=== PATIENT | female | born 1985 | race Caucasian/White ===

== ENCOUNTER 2018-07-01 06:09 | Inpatient (IN) | payer OTHER ==
[2018-07-01 06:48] VITALS: BMI 27.4
[2018-07-01] MEDS ORDERED: Meperidine HCl/PF 25 MG/ML VIAL IM/IV PRN (08:09)
[2018-07-01] MEDS ORDERED: NS / Oxytocin 40 units/1000ml 1,000 ML IV PRN (08:09)
[2018-07-01] MEDS ORDERED: Ibuprofen 800 MG TAB PO PRN (08:09)
[2018-07-01] MEDS ORDERED: Misoprostol 200 MCG TAB PR PRN (08:09)
[2018-07-01] MEDS ORDERED: Carboprost 250 MCG/ML AMP IM PRN (08:09)
[2018-07-01] MEDS ORDERED: Ondansetron PF 4 MG/2 ML Vial IVP PRN (08:09)
[2018-07-01] MEDS ORDERED: Methylergonovine 0.2 MG/ML VIAL IM PRN (08:09)
[2018-07-01] MEDS ORDERED: HYDROcodone/Acetaminophen 5/325 mg Tablet PO PRN ×2 (08:09→20:46)
[2018-07-01] MEDS ORDERED: Butorphanol Tartrate 1 MG/ML VIAL SLOW IVP PRN (08:09)
[2018-07-01] MEDS ORDERED: Lidocaine 1% (PF) 30 ML VIAL SC PRN (08:09)
[2018-07-01] MEDS ORDERED: Acetaminophen 500 MG TAB PO PRN (08:09)
[2018-07-01] MEDS ORDERED: Promethazine HCl 25 MG/ML VIAL IM PRN (08:09)
--- NOTE | 2018-07-01 08:14 | PDOC.EVN ---
Event Note - Event Note Event Note: Came to bedside to evaluate patient. , SVE 3/-1. AROM with clear fluid performed. Vertex presentation. FHT 140. Moderate variability. Category I. Anticipate . No pitocin for now, patient would prefer to see if AROM is effective in starting labor.
[2018-07-01 09:29] LABS: Hemoglobin 11.4 g/dL (12.0-16.0); Mean Corpuscular HGB CONC 33.9 g/dL (32.0-36.0); Mean Corpuscular Hemoglobin 29.9 pg (27.0-31.0); Mean Corpuscular Volume 88.2 fL (78.0-98.0); Mean Platelet Volume 11.1 fL (7.4-10.4); Platelet Count 139 thou/uL (130-400); RBC Distribution Width 11.6 % (11.5-14.5); Red Blood Cell (RBC) Count 3.81 mill/uL (4.20-5.40); White Blood Cell (WBC) Count 8.5 thou/uL (4.8-10.8)
[2018-07-01 10:17] LABS: HBSAg Index 0.28 S/CO (0-0.99); Hep B Surf Ag Non-Reactive S/CO (NonReactive); Syphilis Antibody Nonreactive (Nonreactive); Syphilis Antibody Index 0.06 S/CO (<1.00 Non-Reactive)
[2018-07-01] MEDS ORDERED: Lidocaine 1% (PF) 30 ML VIAL ONE (16:56)
[2018-07-01] MEDS ORDERED: NS / Oxytocin 40 units/1000ml 1,000 ML ONE (16:56)
[2018-07-01] MEDS ORDERED: Benzocaine-Menthol 82.5 ML CAN TOP PRN (20:46)
[2018-07-01] MEDS ORDERED: Milk Of Magnesia 30 ML UDCUP PO PRN (20:46)
[2018-07-01] MEDS ORDERED: Lanolin Ointment 7 GM TUBE TOP PRN (20:46)
[2018-07-01] MEDS ORDERED: NS / Oxytocin 40 units/1000ml 1,000 ML IV SCH (20:46)
[2018-07-01] MEDS ORDERED: Bisacodyl 10 MG SUPP PR PRN (20:46)
[2018-07-01] MEDS: Docusate Calcium (SURFAK) 240 MG CAP PO SCH (23:18)
[2018-07-01] MEDS: Ibuprofen 800 MG TAB PO SCH (23:19)
--- NOTE | 2018-07-02 02:02 | OP ---
DATE OF PROCEDURE: 07/01/2018 PREOPERATIVE DIAGNOSIS: Term intrauterine . POSTOPERATIVE DIAGNOSIS: Term intrauterine . PROCEDURE PERFORMED: Normal spontaneous vaginal delivery. WILDLIFE ECOLOGIST: Fabian Chung MD ANESTHESIA: None. ESTIMATED BLOOD LOSS: 50 mL. BRIEF DELIVERY SUMMARY: This is a 32-year-old, G7, now P7, who presented for induction of labor. She underwent artificial rupture of membranes this morning and contractions began spontaneously after that. She progressed well to complete and pushing her progress from 8 cm to deliver was very rapid. While I was en route, the baby's head and body delivered with a nuchal cord x2. Dr. Fabian Chung was present for that delivery. I arrived approximately 30 seconds after delivery of the baby. The infant was placed on mother's chest. The umbilical cord was doubly clamped and cut, and cord blood was collected and sent for analysis. The placenta was delivered spontaneously and intact with a three-vessel umbilical cord. Uterine fundus was firm following evacuation of the placenta. There were no lacerations. Mom and baby were left with the nurse in excellent condition, attempting to breastfeed. Infant Apgars were 9 at one minute and 9 at five minutes. Job ID: [id number]
[2018-07-02] MEDS: Ibuprofen 800 MG TAB PO SCH ×2 (05:26→14:35)
[2018-07-02] MEDS: Ferrous Sulfate 325 MG TAB PO SCH ×2 (07:44→16:31)
[2018-07-02] MEDS: Docusate Calcium (SURFAK) 240 MG CAP PO SCH (09:03)
--- NOTE | 2018-07-02 12:06 | PDOC.PP ---
Post Progress Note Post Day #: 1 Subjective: Doing well, well, lochia normal PO intake tolerated: yes Flatus: yes Ambulation: yes Vital Signs (12 hours) Temp Pulse Resp BP Pulse Ox 07/02/18 08:15 97.6 F 55 L 20 110/74 99 07/02/18 03:45 98.2 F 70 18 100/56 L Weight Weight 165 lb - Physical Examination General: NAD Cardiovascular: no m/r/g, RRR Respiratory: clear to auscultation bilaterally, non-labored breathing Abdominal: + bowel sounds, lochia, no distention, appropriately TTP Result Diagrams: 07/01/18 09:20 Additional Labs: Post Labs Blood Type A NEGATIVE 07/01/18 09:20 Hep Bs Antigen Non-Reactive S/CO (NonReactive) 07/01/18 09:20 (1) Vaginal delivery Status: Acute - Assessment/Plan Routine PP care D/C home this evening F/U in 6 weeks
[2018-07-02 20:28] VITALS: BP 103/56; TEMP 97.7
== END 2018-07-02 21:10 | disposition home or self-care (01) | DRG 807 ==
LOC: L&D 06:09 → 3SW 22:09 → EDSTATUS 07-11 16:59
PROVIDERS: ADMIT Family Medicine; ATTEND Family Medicine
PROC: 10E0XZZ Delivery of Products of Conception, External Approach (ICD-10-PCS; principal; 2018-07-01)
PROC: 10907ZC Drainage of Amniotic Fluid, Therapeutic from Products of Conception, Via Natural or Artificial Opening (ICD-10-PCS; 2018-07-01)
DX: O76 Abnormality in fetal heart rate and rhythm complicating labor and delivery (principal); Z37.0 Single live birth; O69.81X0 Labor and delivery complicated by cord around neck, without compression, not applicable or unspecified; Z3A.39 39 weeks gestation of pregnancy
CPT/HCPCS: 36415; 85027; 85461; 86780; 86850; 86870; 86900; 86901; 87340; 90384; 96372; J2001; J2405

== ENCOUNTER 2020-04-27 07:55 | Outpatient (CLI) | payer OTHER ==
[2020-04-27 20:51] LABS: SARS-CoV-2 PCR by NAA Not Detected (NotDetected)
== END 2020-04-27 07:56 | disposition home or self-care (01) ==
LOC: LABBT 07:55
PROVIDERS: ATTEND Family Medicine
DX: Z01.812 Encounter for preprocedural laboratory examination (principal); Z20.822 Contact with and (suspected) exposure to COVID-19
CPT/HCPCS: 87635; U0003; U0005

== ENCOUNTER 2020-04-28 11:06 | Inpatient (IN) | payer OTHER ==
[2020-04-30 07:42] VITALS: BMI 28.6
[2020-04-30] MEDS ORDERED: Methylergonovine 0.2 MG/ML VIAL IM PRN (08:18)
[2020-04-30] MEDS ORDERED: hydrALAZINE 20 MG/ML VIAL SLOW IVP PRN (08:18)
[2020-04-30] MEDS ORDERED: Lidocaine 1% (PF) 30 ML VIAL SC PRN (08:18)
[2020-04-30] MEDS ORDERED: Ondansetron PF 4 MG/2 ML Vial IVP PRN (08:18)
[2020-04-30] MEDS ORDERED: Misoprostol 200 MCG TAB PR PRN (08:18)
[2020-04-30] MEDS ORDERED: Ibuprofen 800 MG TAB PO PRN (08:18)
[2020-04-30] MEDS ORDERED: Butorphanol Tartrate 1 MG/ML VIAL SLOW IVP PRN (08:18)
[2020-04-30] MEDS ORDERED: Carboprost 250 MCG/ML AMP IM PRN (08:18)
[2020-04-30] MEDS ORDERED: HYDROcodone/Acetaminophen 5/325 mg Tablet PO PRN (08:18)
[2020-04-30] MEDS ORDERED: Acetaminophen 500 MG TAB PO PRN (08:18)
[2020-04-30] MEDS ORDERED: Promethazine HCl 25 MG/ML VIAL IM PRN (08:18)
[2020-04-30] MEDS ORDERED: NS w/ Oxytocin 30 units 500 ML IVPB PRN (08:56)
[2020-04-30 09:00] LABS: Hemoglobin 11.8 g/dL (12.0-16.0); Mean Corpuscular HGB CONC 33.3 g/dL (32.0-36.0); Mean Corpuscular Hemoglobin 30.3 pg (27.0-31.0); Mean Platelet Volume 10.9 fL (7.4-10.4); Platelet Count 136 thou/uL (130-400); RBC Distribution Width 11.7 % (11.5-14.5); Red Blood Cell (RBC) Count 3.92 mill/uL (4.20-5.40); White Blood Cell (WBC) Count 7.7 thou/uL (4.8-10.8)
[2020-04-30 09:39] LABS: HBSAg Index 0.11 S/CO (0-0.99); Hep B Surf Ag Non-Reactive S/CO (NonReactive); Syphilis Antibody Nonreactive (Nonreactive); Syphilis Antibody Index 0.05 S/CO (<1.00 Non-Reactive)
[2020-05-01] MEDS ORDERED: Benzocaine-Menthol 82.5 ML CAN TOP PRN (01:52)
[2020-05-01] MEDS ORDERED: NS / Oxytocin 40 units/1000ml 1,000 ML IV SCH (01:52)
[2020-05-01] MEDS ORDERED: Milk Of Magnesia 30 ML UDCUP PO PRN (01:52)
[2020-05-01] MEDS ORDERED: hydrALAZINE 20 MG/ML VIAL SLOW IVP PRN (01:52)
[2020-05-01] MEDS ORDERED: HYDROcodone/Acetaminophen 5/325 mg Tablet PO PRN (01:52)
[2020-05-01] MEDS ORDERED: Bisacodyl 10 MG SUPP PR PRN (01:52)
[2020-05-01] MEDS ORDERED: NS w/ Oxytocin 30 units 500 ML IV SCH (02:00)
[2020-05-01] MEDS: Ibuprofen 800 MG TAB PO SCH ×4 (02:38→22:03)
[2020-05-01] MEDS: Ferrous Sulfate 325 MG TAB PO SCH ×2 (07:57→15:48)
[2020-05-01] MEDS: Docusate Calcium (SURFAK) 240 MG CAP PO SCH ×2 (08:44→22:00)
[2020-05-01] MEDS ORDERED: Adacel (T-DAP) 0.5 ML SYRINGE IM ONE (09:00)
[2020-05-02] MEDS: Ibuprofen 800 MG TAB PO SCH (05:57)
[2020-05-02] MEDS: Ferrous Sulfate 325 MG TAB PO SCH (07:11)
[2020-05-02 08:57] VITALS: BP 103/61; TEMP 97.8
[2020-05-02] MEDS: Docusate Calcium (SURFAK) 240 MG CAP PO SCH (08:58)
== END 2020-05-02 09:57 | disposition home or self-care (01) | DRG 807 ==
LOC: L&D 04-30 06:33 → 3SW 05-01 01:51
PROVIDERS: ADMIT Family Medicine; ATTEND Family Medicine
PROC: 10E0XZZ Delivery of Products of Conception, External Approach (ICD-10-PCS; principal; 2020-04-30)
PROC: 10907ZC Drainage of Amniotic Fluid, Therapeutic from Products of Conception, Via Natural or Artificial Opening (ICD-10-PCS; 2020-04-30)
DX: O80 Encounter for full-term uncomplicated delivery (principal); Z37.0 Single live birth; Z3A.39 39 weeks gestation of pregnancy; Z20.822 Contact with and (suspected) exposure to COVID-19
CPT/HCPCS: 36415; 85027; 86780; 86850; 86900; 86901; 87340; J2590